=== PATIENT | female | born 1945 | race Caucasian/White ===

== ENCOUNTER → 2016-12-01 | Outpatient (CLI) | payer OTHER, MEDICARE | LOC: BMCIMAGING 11:46 | PROVIDERS: ATTEND Internal Medicine | DX: R05 Cough (principal); R00.0 Tachycardia, unspecified; F41.9 Anxiety disorder, unspecified; R25.1 Tremor, unspecified ==

== ENCOUNTER → 2016-12-16 | Outpatient (CLI) | payer OTHER, MEDICARE | LOC: BMCIMAGING 10:44 | PROVIDERS: ATTEND Internal Medicine | DX: R91.8 Other nonspecific abnormal finding of lung field (principal) ==

== ENCOUNTER → 2016-12-27 | Outpatient (CLI) | payer OTHER, MEDICARE | LOC: BMCIMAGING 13:11 | PROVIDERS: ATTEND Internal Medicine Endocrinology, Diabetes & Metabolism | DX: E04.2 Nontoxic multinodular goiter (principal); R91.1 Solitary pulmonary nodule | CPT/HCPCS: 76536-PO ==

== ENCOUNTER → 2016-12-29 | Outpatient (CLI) | payer OTHER, MEDICARE | LOC: BMCIMAGING 14:34 | PROVIDERS: ATTEND Internal Medicine | DX: Z12.31 Encounter for screening mammogram for malignant neoplasm of breast (principal); Z13.820 Encounter for screening for osteoporosis; M85.80 Other specified disorders of bone density and structure, unspecified site | CPT/HCPCS: G0202 ==

== ENCOUNTER → 2017-01-06 | Outpatient (CLI) | payer OTHER, MEDICARE | LOC: BMCIMAGING 09:32 | PROVIDERS: ATTEND Internal Medicine | DX: R92.8 Other abnormal and inconclusive findings on diagnostic imaging of breast (principal) | CPT/HCPCS: G0206 ==

== ENCOUNTER → 2017-12-30 | Outpatient (CLI) | payer OTHER, MEDICARE | LOC: BMCIMAGING 12:42 | PROVIDERS: ATTEND Internal Medicine | DX: Z12.31 Encounter for screening mammogram for malignant neoplasm of breast (principal) ==

== ENCOUNTER → 2018-01-10 | Outpatient (CLI) | payer OTHER, MEDICARE | LOC: BMCIMAGING 13:18 | PROVIDERS: ATTEND Internal Medicine Endocrinology, Diabetes & Metabolism | DX: E04.2 Nontoxic multinodular goiter (principal) | CPT/HCPCS: 76536-PO; 86376-90 ==

== ENCOUNTER → 2018-09-04 | Outpatient (CLI) | payer OTHER, MEDICARE | LOC: BMCIMAGING 11:58 | PROVIDERS: ATTEND Internal Medicine | DX: R07.9 Chest pain, unspecified (principal) ==

== ENCOUNTER → 2019-01-01 | Outpatient (CLI) | payer OTHER, MEDICARE | LOC: CIMAGING 10:04 | PROVIDERS: ATTEND Internal Medicine | DX: Z12.31 Encounter for screening mammogram for malignant neoplasm of breast (principal) ==

== ENCOUNTER → 2019-02-12 | Outpatient (CLI) | payer OTHER, MEDICARE | LOC: BMCIMAGING 11:01 ==